=== PATIENT | male | born 1990 | race Caucasian/White ===

== ENCOUNTER → 2016-10-01 | Outpatient (CLI) | payer SELFPAY | END | disposition home or self-care (01) | LOC: YCFC.O 08:48 | PROVIDERS: ATTEND Nurse Practitioner Family | DX: A64 Unspecified sexually transmitted disease (principal) ==

== ENCOUNTER 2017-04-20 00:18 | Emergency (ER) | payer SELFPAY ==
[2017-04-20 01:22] VITALS: BP 125/83; TEMP 98.7; O2SAT 97
--- NOTE | 2017-04-20 01:29 | RAD ---
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 Correlate with site of pain. There is a chronic appearing deformity of the distal fifth metacarpal. No radiopaque foreign bodies. Electronically signed by: Josesito Keene MD 04/20/2017 1:28 AM INGOT CAR OPERATOR
--- NOTE | 2017-04-20 01:39 | ED.PDOC ---
History of Present Illness - General Chief Complaint: Upper Extremity Injury Stated Complaint: right hand pain Time Seen by Provider: 04/20/17 01:29 Source: patient Exam Limitations: no limitations - History of Present Illness Initial Comments: the patient is a 27-year-old male presenting to emergency room secondary to pain in his right hand after punching a dumpster.no definite deformities noted. No localized swelling just generalized pain. Range of motion appears to be preserved. Sensation appears to be preserved. He has mild abrasions of the knuckles. He is previously had boxer's fractures. No pain in the anatomic snuffbox. Timing/Duration: 1-3 hours Severity: mild Improving Factors: nothing Worsening Factors: nothing Associated Symptoms: denies symptoms Allergies/Adverse Reactions: Allergies Cefaclor [From Ceclor] Allergy (Verified 04/20/13 15:10) Home Medications: Ambulatory Orders NK [NK] 04/20/17 Review of Systems - Review of Systems Constitutional: States: no symptoms reported EENTM: States: no symptoms reported Respiratory: States: no symptoms reported Cardiology: States: no symptoms reported Gastrointestinal/Abdominal: States: no symptoms reported Genitourinary: States: no symptoms reported Musculoskeletal: States: see HPI Skin: States: see HPI Neurological: States: no symptoms reported Endocrine: States: no symptoms reported All other Systems: No Change from Baseline Past Medical History (General) - Patient Medical History Hx Seizures: No Hx Stroke: No Hx Dementia: No Hx Asthma: No Hx of COPD: No Hx Cardiac Disorders: No Hx Congestive Heart Failure: No Hx Pacemaker: No Hx Hypertension: No Hx Thyroid Disease: No Hx Diabetes: No Hx Gastroesophageal Reflux: No Hx Renal Disease: No Hx Cancer: No Hx of HIV: No Hx Hepatitis C: No Hx MRSA: No - Vaccination History Hx Tetanus, Diphtheria Vaccination: No Hx Influenza Vaccination: No Hx Pneumococcal Vaccination: No - Social History Hx Tobacco Use: Yes Hx Chewing Tobacco Use: No Hx Alcohol Use: Yes Hx Substance Use: No Hx Substance Use Treatment: No Hx Depression: No Hx Physical Abuse: No Hx Emotional Abuse: No Hx Suspected Abuse: No - Female History Patient : No Family Medical History - Family History Mother Family History: No Known Living Status: Still Living Physical Exam - Physical Exam General Appearance: Alert, Comfortable, No apparent distress Eye Exam: bilateral normal Ears, Nose, Throat: hearing grossly normal Neck: full range of motion Respiratory: no respiratory distress, no accessory muscle use Cardiovascular/Chest: normal peripheral pulses, no edema Peripheral Pulses: radial,right: 2+, radial,left: 2+ Rectal Exam: deferred Extremity: normal range of motion, normal capillary refill, swelling - mild Neurologic: technician's helper II-XII nml as tested, alert, normal mood/affect, oriented x 3 Skin Exam: normal color - mild abrasions of the knuckles Comments: Vital Signs - 24 hr 04/20/17 00:29 Temperature 98.7 F Pulse Rate [ 120 H Right] Respiratory 16 Rate Blood Pressure 125/83 [Left Arm] O2 Sat by Pulse 97 Oximetry Progress - Progress Progress: 04/20/17 01:39 the patient is a 27-year-old male presenting to the emergency room secondary to pain in his right hand after punching a dumpster. The patient appears to only have bruises and abrasions at this point. X-ray shows no evidence of fracture or dislocation. Range of motion appears to be preserved. Sensation appears to be grossly preserved. Ibuprofen may help every 8 hours as needed for the next week. ER warnings were given for any significant worsening or persistent pain in which case a repeat x-ray may be warranted. Departure - Departure Clinical Impression: Hand sprain and strain Disposition: Discharge to Home or Self Care Condition: Fair Departure Forms: ED Discharge - Pt. Copy, Patient Portal Self Enrollment Instructions: DI for Hand Injury Diet: regular diet Activity: increase activity as tolerated Referrals: Stacy Cerda NP [Primary Care Provider] - 1-2 Weeks Home Medications: Ambulatory Orders NK [NK] 04/20/17 Additional Instructions: the patient is a 27-year-old male presenting to the emergency room secondary to pain in his right hand after punching a dumpster. The patient appears to only have bruises and abrasions at this point. X-ray shows no evidence of fracture or dislocation. Range of motion appears to be preserved. Sensation appears to be grossly preserved. Ibuprofen may help every 8 hours as needed for the next week. ER warnings were given for any significant worsening or persistent pain in which case a repeat x-ray may be warranted.
== END 2017-04-20 01:48 | disposition home or self-care (01) ==
LOC: ER 00:18
DX: S63.91XA Sprain of unspecified part of right wrist and hand, initial encounter (principal); S66.911A Strain of unspecified muscle, fascia and tendon at wrist and hand level, right hand, initial encounter; Z88.3 Allergy status to other anti-infective agents; Z87.891 Personal history of nicotine dependence; W22.09XA Striking against other stationary object, initial encounter; Y92.9 Unspecified place or not applicable

== ENCOUNTER 2017-08-24 21:11 | Emergency (ER) | payer SELFPAY ==
[2017-08-24 21:23] VITALS: BP 120/77; TEMP 98.3; O2SAT 100
[2017-08-24] MEDS ORDERED: predniSONE 20 MG TAB PO ONE (21:40)
[2017-08-24] MEDS ORDERED: CYCLOBENZAPRINE HCL 10 MG TAB PO ONE (21:40)
[2017-08-24] MEDS ORDERED: HYDROcodone 7.5MG/APAP 325MG 1 EA TAB PO ONE (21:40)
--- NOTE | 2017-08-24 22:15 | RAD ---
Procedure: XR LUMBAR SPINE 2-3 VIEWS Exam Date: 08/24/2017 9:39 PM CDT Ordering Provider: Canelo Snell Clinical Indication: pain 12 hours l2-4 Comparison: None Findings: No fracture, focal osseous destruction, or malalignment. Disk space heights are preserved. Soft tissues are unremarkable. IMPRESSION: No acute osseous abnormality. Electronically signed by: Triny Torres MD 08/24/2017 10:14 PM CDT
--- NOTE | 2017-08-24 22:33 | ED.PDOC ---
History of Present Illness - General Chief Complaint: Back Pain or Injury Stated Complaint: low back pain Time Seen by Provider: 08/24/17 21:39 Source: patient Exam Limitations: no limitations - History of Present Illness Initial Comments: The patient is a 27-year-old male presenting to the emergency room secondary to acute onset low back pain this morning while working. He was not doing anything particularly strenuous when he developed low back pain. Low back pain extends from L2-L4. It is more in the center than on the left or the right. He does have palpable muscle spasms bilaterally. He does not have any symptoms of sciatica at this time. No weakness. No loss of sensation. No incontinence. He has not really had any trauma to the back before. There is no bruising. There is no step-off. There is no tenderness to palpation of the vertebral processes. Timing/Duration: 4-6 hours Severity: moderate Improving Factors: immobilization Worsening Factors: movement Associated Symptoms: denies symptoms Allergies/Adverse Reactions: Allergies Cefaclor [From Ceclor] Allergy (Verified 04/20/13 15:10) Home Medications: Ambulatory Orders Stlkypsjgagif-Dmho-Yshzuelkvw [Fioricet] 1 ea PO Q8H PRN #21 tab 08/24/17 Cyclobenzaprine HCl [Flexeril] 10 mg PO TID PRN #60 tab 08/24/17 predniSONE [Prednisone] 20 mg PO DAILY #5 tab 08/24/17 Review of Systems - Review of Systems Constitutional: States: no symptoms reported EENTM: States: no symptoms reported Respiratory: States: no symptoms reported Cardiology: States: no symptoms reported Gastrointestinal/Abdominal: States: no symptoms reported Genitourinary: States: no symptoms reported Musculoskeletal: States: see HPI Skin: States: no symptoms reported Neurological: States: no symptoms reported Endocrine: States: no symptoms reported All other Systems: No Change from Baseline Past Medical History (General) - Patient Medical History Hx Seizures: No Hx Stroke: No Hx Dementia: No Hx Asthma: No Hx of COPD: No Hx Cardiac Disorders: No Hx Congestive Heart Failure: No Hx Pacemaker: No Hx Hypertension: No Hx Thyroid Disease: No Hx Diabetes: No Hx Gastroesophageal Reflux: No Hx Renal Disease: No Hx Cancer: No Hx of HIV: No Hx Hepatitis C: No Hx MRSA: No - Vaccination History Hx Tetanus, Diphtheria Vaccination: No Hx Influenza Vaccination: No Hx Pneumococcal Vaccination: No - Social History Hx Tobacco Use: Yes Hx Chewing Tobacco Use: No Hx Alcohol Use: Yes Hx Substance Use: No Hx Substance Use Treatment: No Hx Depression: No Hx Physical Abuse: No Hx Emotional Abuse: No Hx Suspected Abuse: No - Female History Patient : No Family Medical History - Family History Mother Family History: No Known Living Status: Still Living Physical Exam - Physical Exam General Appearance: Alert, No apparent distress - ut obviously uncomfortable Ears, Nose, Throat: hearing grossly normal Neck: full range of motion, supple, normal inspection Respiratory: no respiratory distress, no accessory muscle use Cardiovascular/Chest: normal peripheral pulses, no edema Peripheral Pulses: dorsalis pedis,right: 2+, dorsalis pedis,left: 2+ Gastrointestinal/Abdominal: soft Rectal Exam: deferred Back Exam: muscle spasm, other - ee history of present illness. pain is made primarily worse by flexion at the hips. Extremity: normal range of motion, non-tender, normal inspection, no pedal edema Neurologic: credit product analyst II-XII nml as tested, no motor/sensory deficits, alert, normal mood/affect, oriented x 3 Skin Exam: normal color Comments: Vital Signs - 24 hr 08/24/17 21:21 Temperature 98.3 F Pulse Rate [ 107 H Right] Respiratory 16 Rate Blood Pressure 120/77 [Left Arm] O2 Sat by Pulse 100 Oximetry Progress - Progress Progress: 08/24/17 22:34 the patient is a 27-year-old male presenting with acute onset low back pain after a work injury this morning. X-rays of lumbar spine showed no acute pathology. The patient has obvious muscle spasm and uncontrolled pain. The patient can take 2 Aleve 3 times daily with food. He will also be written for Flexeril 10 mg 3 times a day as needed as a muscle relaxer. He'll be placed on prednisone 20 mg daily as well. He'll also be written for some Fioricet for as needed use for straight up pain control. He does need to see a chiropractor in the morning if he is not improving. Heat on the back may help relax the muscles and gentle traction may also help. ER warnings were given for any significant worsening. He should follow-up with his primary care doctor towards the end of the week for reevaluation. Departure - Departure Clinical Impression: Acute low back pain Qualifiers: Back pain laterality: bilateral Sciatica presence: without sciatica Qualified Code(s): M54.5 - Low back pain Disposition: Discharge to Home or Self Care Condition: Fair Departure Forms: ED Discharge - Pt. Copy, Patient Portal Self Enrollment Instructions: DI for Low Back Pain, DI for Back Strain or Sprain Diet: regular diet Activity: increase activity as tolerated Prescriptions: Hvzklhbbcngqh-Ungl-Hqqfkiudew [Fioricet] 1 ea PO Q8H PRN #21 tab PRN Reason: Pain Cyclobenzaprine HCl [Flexeril] 10 mg PO TID PRN #60 tab PRN Reason: Muscle Spasms predniSONE [Prednisone] 20 mg PO DAILY #5 tab Home Medications: Ambulatory Orders Wjczexkiamzvn-Lcjo-Lczgpznakr [Fioricet] 1 ea PO Q8H PRN #21 tab 08/24/17 Cyclobenzaprine HCl [Flexeril] 10 mg PO TID PRN #60 tab 08/24/17 predniSONE [Prednisone] 20 mg PO DAILY #5 tab 08/24/17 Additional Instructions: the patient is a 27-year-old male presenting with acute onset low back pain after a work injury this morning. X-rays of lumbar spine showed no acute pathology. The patient has obvious muscle spasm and uncontrolled pain. The patient can take 2 Aleve 3 times daily with food. He will also be written for Flexeril 10 mg 3 times a day as needed as a muscle relaxer. He'll be placed on prednisone 20 mg daily as well. He'll also be written for some Fioricet for as needed use for straight up pain control. He does need to see a chiropractor in the morning if he is not improving. Heat on the back may help relax the muscles and gentle traction may also help. ER warnings were given for any significant worsening. He should follow-up with his primary care doctor towards the end of the week for reevaluation.
== END 2017-08-24 22:50 | disposition home or self-care (01) ==
LOC: ER 21:11
DX: M54.5 Low back pain (principal)
CPT/HCPCS: 72100; J7512

== ENCOUNTER 2017-10-04 22:39 | Emergency (ER) | payer SELFPAY ==
--- NOTE | 2017-10-04 22:58 | ED.PDOC ---
History of Present Illness - General Chief Complaint: Neuro Symptoms/Deficits Stated Complaint: unresponsive Time Seen by Provider: 10/04/17 22:54 Source: family - mom, EMS Exam Limitations: clinical condition - unresponsive - History of Present Illness Initial Comments: Jose Francisco Gaytan 27 y/o male was found hang on his neck with bed linen on the balcony of his hotel room.He was taken down by hotel guest and ems was then called and he was found to be pulseless,not breathing ,had chest compression,BVM ,intubated was able to have ROSC on arrival.Had history of previous suicidal thought since in his teen years according to mom.Has [facility] appointment next week according to mom. Timing/Duration: unknown Severity: severe Episode Description: see hpi Improving Factors: nothing Worsening Factors: nothing Allergies/Adverse Reactions: Allergies Cefaclor [From Ceclor] Allergy (Verified 04/20/13 15:10) Home Medications: Ambulatory Orders Wvjxnmorluzyk-Odqn-Lwudygejfv [Fioricet] 1 ea PO Q8H PRN #21 tab 08/24/17 Cyclobenzaprine HCl [Flexeril] 10 mg PO TID PRN #60 tab 08/24/17 predniSONE [Prednisone] 20 mg PO DAILY #5 tab 08/24/17 Review of Systems - Review of Systems Unable to Obtain Due To: condition, intubated Past Medical History (General) - Patient Medical History Hx Seizures: No Hx Stroke: No Hx Dementia: No Hx Asthma: No Hx of COPD: No Hx Cardiac Disorders: No Hx Congestive Heart Failure: No Hx Pacemaker: No Hx Hypertension: No Hx Thyroid Disease: No Hx Diabetes: No Hx Gastroesophageal Reflux: No Hx Renal Disease: No Hx Cancer: No Hx of HIV: No Hx Hepatitis C: No Hx MRSA: No Hx Other PMH: Yes - suicidal thoughts - Vaccination History Hx Tetanus, Diphtheria Vaccination: No Hx Influenza Vaccination: No Hx Pneumococcal Vaccination: No - Social History Hx Tobacco Use: Yes Hx Chewing Tobacco Use: No Hx Alcohol Use: Yes Hx Substance Use: No Hx Substance Use Treatment: No Hx Depression: No Hx Physical Abuse: No Hx Emotional Abuse: No Hx Suspected Abuse: No - Female History Patient : No Family Medical History - Family History Mother Family History: No Known Living Status: Still Living Physical Exam - Physical Exam General Appearance: Other - unresponsive intubated Eye Exam: bilateral other - weakly reactive ENT Exam: other - intubated Neck: supple, trachea midline Respiratory: lungs clear Cardiovascular/Chest: tachycardia - hr 117 Peripheral Pulses: radial,right: 1+, radial,left: 1+ Gastrointestinal/Abdominal: non tender, soft Mental Status: unresponsive Skin Exam: normal color, warm/dry Progress - Progress Progress: 10/04/17 23:22 Vital Signs - 8 hr 10/04/17 10/04/17 22:45 23:18 Temperature 100.3 F H Pulse Rate [ 158 H 109 H Apical] Respiratory 12 Rate O2 Sat by Pulse 99 Oximetry Departure - Departure Clinical Impression: Suicide and self-inflicted injury by hanging Qualifiers: Encounter type: initial encounter Qualified Code(s): T71.162A - Asphyxiation due to hanging, intentional self-harm, initial encounter Altered mental state Qualifiers: Altered mental status type: coma Coma depth: Temple coma 3-8 Coma timing: in the field (EMT or ambulance) Qualified Code(s): R40.2431 - Temple coma scale score 3-8, in the field [EMT or ambulance] Time of Disposition: 23:23 Disposition: Transfer to Hospital Condition: Serious Departure Forms: Patient Portal Self Enrollment Home Medications: Ambulatory Orders Hhfywbdkamgzz-Sndj-Jonzmjjgro [Fioricet] 1 ea PO Q8H PRN #21 tab 08/24/17 Cyclobenzaprine HCl [Flexeril] 10 mg PO TID PRN #60 tab 08/24/17 predniSONE [Prednisone] 20 mg PO DAILY #5 tab 08/24/17 Transfer to Outside Facility - Transfer Information Accepting Provider:: Dr. Aguirre Accepting Facility: [facility]
[2017-10-04] MEDS ORDERED: VECURONIUM BROMIDE 10 MG VIAL IV ONE ×4 (23:00→23:45)
[2017-10-04 23:04] VITALS: O2SAT 99
[2017-10-04] MEDS ORDERED: WATER FOR INJ 10 ML VIAL INJ ONE ×2 (23:04→23:42)
[2017-10-04] MEDS ORDERED: MIDAZOLAM INJ 5 MG/5 ML VIAL ONE (23:09)
[2017-10-04] MEDS ORDERED: MIDAZOLAM INJ 5 MG/5 ML VIAL IV ONE (23:09)
[2017-10-04] MEDS ORDERED: SODIUM CHLORIDE 0.9% 1000ML 1,000 ML ONE (23:09)
[2017-10-05 00:07] VITALS: BP 126/78; TEMP 99.8
== END 2017-10-04 23:50 | disposition short-term general hospital (02) ==
LOC: ER 22:39
DX: T71.162A Asphyxiation due to hanging, intentional self-harm, initial encounter (principal); R40.2431 Glasgow coma scale score 3-8, in the field [EMT or ambulance]; Z87.891 Personal history of nicotine dependence; R00.0 Tachycardia, unspecified
CPT/HCPCS: 36415; 80053; 80320; 80329; 85025; A4216; J2250; J7030

== ENCOUNTER 2018-12-10 12:20 | Inpatient (IN) | payer OTHER ==
[2018-12-10] MEDS ORDERED: MORPHINE SULFATE INJ 10 MG/ML VIAL ONE (12:43)
[2018-12-10] MEDS ORDERED: MORPHINE SULFATE INJ 10 MG/ML VIAL IV ONE (12:48)
[2018-12-10] MEDS ORDERED: PROMETHAZINE SUPP 25 MG SUP PR PRN (13:37)
[2018-12-10] MEDS ORDERED: ACETAMINOPHEN SUPPOSITORY 650 MG PR PRN (13:39)
[2018-12-10] MEDS ORDERED: ONDANSETRON INJ 4 MG/2 ML VIAL IV PRN (13:40)
[2018-12-10] MEDS: SCOPOLAMINE PATCH 1.5MG 1 EA TD SCH (14:36)
[2018-12-10] MEDS: MORPHINE SULFATE INJ 10 MG/ML VIAL IV SCH ×2 (14:36→19:31)
[2018-12-10] MEDS: MORPHINE SULFATE INJ 10 MG/ML VIAL IV PRN (17:57)
--- NOTE | 2018-12-10 19:11 | HP ---
SUPERVISING PHYSICIAN: Ravi Menjivar M.D. CHIEF COMPLAINT: Hospice care for post suicide attempt. 0ISTORY OF PRESENT ILLNESS: This is a 27 year-old male that was found about 2 months ago hanging by his bed linens on the balcony of his hotel room. He was taken down by hotel guests and EMS was called and he was brought to the hospital. He has had previous suicidal ideations in his teens. He was sent to [facility]. He was then actually stabilized and sent to a alf. He was then readmitted to the hospital. He had respiratory failure at some point and was placed on a ventilator and put in ICU. After he was weaned from the ventilator his family, his mother and his significant other, attended several palliative care meetings and it was decided that he would be discharged from the hospital to our hospital for [facility] treatment. PAST MEDICAL HISTORY: None. PAST SURGICAL HISTORY None.: OUTPATIENT MEDICATIONS: None. ALLERGIES: CEFACLOR. SOCIAL HISTORY: He is single. He has no history of tobacco use. He has a history of alcohol use but it is unknown how much. There is no known history of drug use. REVIEW OF SYSTEMS: Unable to do due to the patient's mental status. PHYSICAL EXAMINATION: VITAL SIGNS: Temperature 99.3, heart rate 122, blood pressure 92/60, respiratory rate 20, O2 sat 83% on room air. GENERAL: This is a cachectic young male lying in his hospital bed. He is in mild respiratory distress. HEENT: Normocephalic and atraumatic. NECK: Supple without mass. CHEST: Diminished breath sounds throughout. He is tachypneic. CARDIOVASCULAR: Regular rate and rhythm. GASTROINTESTINAL: Abdomen is soft, nondistended. Bowel sounds are positive. NEUROLOGIC: He is unresponsive. SKIN: Warm and dry. LABORATORY: There are no labs or films to report. ASSESSMENT: 1. Acute respiratory failure secondary to traumatic brain injury with attempted suicide presently on hospice care. PLAN: We have admitted the patient to the hospital for [facility] care. Orders will be per [facility]. We will see the patient as needed. Otherwise we will refer to their standing orders. Will continue to monitor closely and follow as needed. He does have a PEG tube. #[id number] [facility]
[2018-12-11] MEDS: MORPHINE SULFATE INJ 10 MG/ML VIAL IV PRN ×2 (00:51→11:12)
[2018-12-11] MEDS: MORPHINE SULFATE INJ 10 MG/ML VIAL IV SCH ×6 (02:02→22:08)
[2018-12-11] MEDS ORDERED: MAGNESIUM HYDROXIDE 30 ML UD GT ONE (13:30)
[2018-12-11] MEDS ORDERED: MAGNESIUM HYDROXIDE 30 ML UD ONE (13:34)
[2018-12-11] MEDS: SCOPOLAMINE PATCH 1.5MG 1 EA TD SCH (13:41)
[2018-12-11] MEDS: NON-FORMULARY MEDICATION 1 EA MIS GT SCH ×3 (14:00→22:08)
[2018-12-12] MEDS: MORPHINE SULFATE INJ 10 MG/ML VIAL IV SCH ×6 (01:36→22:06)
[2018-12-12] MEDS: NON-FORMULARY MEDICATION 1 EA MIS GT SCH ×6 (01:37→22:06)
[2018-12-12] MEDS: MORPHINE SULFATE INJ 10 MG/ML VIAL IV PRN ×2 (07:49→11:35)
[2018-12-12] MEDS: ATROPINE 1% OPHTH SOL 1 DROP DROPS SL PRN ×4 (10:24→18:06)
[2018-12-12] MEDS: SCOPOLAMINE PATCH 1.5MG 1 EA TD SCH (14:57)
[2018-12-13] MEDS: NON-FORMULARY MEDICATION 1 EA MIS GT SCH ×6 (01:58→21:51)
[2018-12-13] MEDS: MORPHINE SULFATE INJ 10 MG/ML VIAL IV SCH ×6 (01:58→21:50)
[2018-12-13] MEDS: ATROPINE 1% OPHTH SOL 1 DROP DROPS SL PRN ×4 (09:04→20:25)
[2018-12-13] MEDS: MORPHINE SULFATE INJ 10 MG/ML VIAL IV PRN (13:07)
[2018-12-13] MEDS: SCOPOLAMINE PATCH 1.5MG 1 EA TD SCH (14:09)
--- NOTE | 2018-12-13 22:03 | PN ---
DATE: 12/13/18 SUPERVISING PHYSICIAN: Josesito Lucio M.D. SUBJECTIVE: The patient remains unresponsive. Family has been to the bedside the majority of the patient's hospitalization so far. He continues on care and comfort measures . OBJECTIVE: GENERAL: The patient is unresponsive in a contracted state. Very cathodic in appearance. CHEST: Lung sounds remain diminished and tachypneic. HEART: Regular rate and rhythm. SKIN: Warm and dry. LABORATORY: No labs to report. ASSESSMENT: 1. Acute respiratory failure secondary to traumatic brain injury with attempted suicide presently on hospice care. PLAN: Will continue to follow the patient while he is on hospice under the care of [facility]. Until he either transfers back to care home care at [facility] or otherwise, will continue to monitor and treat as needed. [id number] [facility]
[2018-12-14] MEDS: ATROPINE 1% OPHTH SOL 1 DROP DROPS SL PRN ×2 (00:53→05:48)
[2018-12-14] MEDS: NON-FORMULARY MEDICATION 1 EA MIS GT SCH ×6 (01:50→21:53)
[2018-12-14] MEDS: MORPHINE SULFATE INJ 10 MG/ML VIAL IV SCH ×4 (01:50→13:36)
[2018-12-14] MEDS: SCOPOLAMINE PATCH 1.5MG 1 EA TD SCH (13:37)
[2018-12-14] MEDS ORDERED: LORazepam 0.5 MG TAB GT PRN (16:37)
[2018-12-14] MEDS: MORPHINE *IMMEDIATE RELEASE* 15 MG TAB NG SCH ×2 (18:15→23:40)
[2018-12-14 23:02] VITALS: BP 109/74; TEMP 99.7
[2018-12-15] MEDS: NON-FORMULARY MEDICATION 1 EA MIS GT SCH ×3 (01:58→10:47)
[2018-12-15] MEDS: MORPHINE *IMMEDIATE RELEASE* 15 MG TAB NG SCH (05:48)
[2018-12-15 07:11] VITALS: O2SAT 97
[2018-12-15] MEDS ORDERED: MORPHINE SULFATE INJ 10 MG/ML VIAL IV PRN (10:27)
--- NOTE | 2018-12-15 11:41 | DS ---
SUPERVISING PHYSICIAN: Josesito Lucio MD DISCHARGE DIAGNOSIS: 1. Acute respiratory failure secondary to traumatic brain injury with attempted suicide, presently on hospice care. HISTORY OF PRESENT ILLNESS: This is a 28-year-old male that was found about a year ago hanging by his bed linens on the balcony of his hotel room. He was taken down by hotel guests and EMS was called and he was brought to the hospital. He had previous suicidal ideations in his teens. He was sent to [facility]. He was stabilized and sent to a alf in [place]. He then had respiratory failure and was readmitted to the hospital. He was placed on a ventilator and put in ICU. He was weaned from the ventilator and due to his poor prognosis as well as acute respiratory failure, he was sent to our facility and placed on [facility]. HOSPITAL COURSE: Initially, his respiratory rate rate was in the 30s with O2 saturations in the 80s. [facility] put him on all their medications, but over the next days, his vital signs stabilized. He was actually given some free water at some point and tolerated it without problems. Today, he is at the point that he is stabilized enough that he will be discharged from the hospital and be re-admitted to the alf in [place] where he previously resided. He will be transferred from [facility] to [facility] out of [place]. DISCHARGE PLAN: The patient will be discharged to the alf in [place]. He is to be transferred from [facility] in [place] to [facility] in [place]. Dr. Crooks will now be his attending physician. His medications ordered will be per [facility]. #[id number] [facility]
== END 2018-12-15 11:51 | DRG 189 ==
LOC: MS 12:20
PROVIDERS: ADMIT Nurse Practitioner Acute Care; ATTEND Nurse Practitioner Acute Care
DX: J96.00 Acute respiratory failure, unspecified whether with hypoxia or hypercapnia (principal); R64 Cachexia; Z66 Do not resuscitate; Z51.5 Encounter for palliative care; Z88.8 Allergy status to other drugs, medicaments and biological substances; S06.9X9D Unspecified intracranial injury with loss of consciousness of unspecified duration, subsequent encounter; X83.8XXD Intentional self-harm by other specified means, subsequent encounter; Z68.21 Body mass index [BMI] 21.0-21.9, adult